=== PATIENT | female | born 1945 | race Caucasian/White ===

== ENCOUNTER 2020-08-18 02:00 | Inpatient (IN) | payer SELFPAY ==
[~2020-08-18] VITALS: Ht 165.1 cm; Wt 66.2 kg
[2020-08-18] MEDS ORDERED: MORPHINE SULFATE INJ 2 MG/ML DISP.SYRIN ONE (02:17)
[2020-08-18] MEDS ORDERED: ONDANSETRON HCL/PF 4 MG/2 ML VIAL ONE (02:17)
[2020-08-18] MEDS ORDERED: ONDANSETRON HCL/PF 4 MG/2 ML VIAL IVP ONE (02:30)
[2020-08-18] MEDS ORDERED: MORPHINE SULFATE INJ 2 MG/ML DISP.SYRIN IV ONE (02:30)
--- NOTE | 2020-08-18 02:30 | NUR ---
PT BIBS BYSTANDER, PT FOUND IN THE MIDDLE OF THE ROAD CONFUSED AND IN PAIN. PT DOES NOT REMEMBER HOW SHE GOT THERE OR WHAT HAPPENED. PT STATES SHE LIVES ALONE AND IS ABLE TO PROVIDE HOME ADDRESS. PT COMPLAINING OF L LEG PAIN DOES NOT RECALL INJURY. TO ER BED 12
--- NOTE | 2020-08-18 02:42 | NUR ---
BLOOD COLLECTED AND SENT TO LAB
--- NOTE | 2020-08-18 02:46 | NUR ---
PT TAKEN TO CT
[2020-08-18 02:55] LABS: CALCIUM, SERUM 10.7 mg/dL (8.5-10.1); CARBON DIOXIDE 30 mmol/L (21-32); CHLORIDE 104 mmol/L (98-107); CREATININE 0.8 mg/dL (0.6-1.3); GLUCOSE 153 mg/dL (74-106); POTASSIUM 3.8 mmol/L (3.5-5.1); SODIUM SERUM 142 mmol/L (136-145); UREA NITROGEN, BLOOD 18 mg/dL (7-18)
[2020-08-18 03:00] LABS: ACETAMINOPHEN < 10 ug/ml (10-30); ALANINE AMINOTRANSFERASE 15 U/L (12-78); ALBUMIN 4.2 g/dL (3.4-5.0); ALCOHOL, BLOOD < 3 mg/dL (0-0); ALKALINE PHOSPHATASE 94 U/L (46-116); ASPARTATE AMINOTRANSFERASE 15 U/L (15-37); BILIRUBIN,DIRECT 0.1 mg/dL (0.0-0.2); BILIRUBIN,TOTAL 0.3 mg/dL (0.2-1.0)
--- NOTE | 2020-08-18 03:24 | NUR ---
urine collected and sent to lab
[2020-08-18 03:34] LABS: BASOPHILS % (AUTO) 0.1 % (0.0-2.0); HEMATOCRIT 41 % (33-45); LYMPHOCYTES # (AUTO) 0.7 /CMM (0.8-4.8); LYMPHOCYTES % (AUTO) 5.8 % (20.0-44.0); MEAN CORPUSCULAR HGB CONC 32 g/dl (31.0-36.0); MEAN CORPUSCULAR VOLUME 89 fL (82-100); MONOCYTES # (AUTO) 0.6 /CMM (0.1-1.30); MONOCYTES % (AUTO) 5.2 % (2.0-12.0); NEUTROPHILS # (AUTO) 10.5 /CMM (1.8-8.9); NEUTROPHILS % (AUTO) 88.9 % (43.0-81.0); PLATELET COUNT (AUTO) 254 /CMM (150-450); RED BLOOD CELL COUNT(AUTO) 4.61 MIL/uL (4.0-5.2); WHITE BLOOD COUNT (AUTO) 11.8 K/uL (4.3-11.0)
--- NOTE | 2020-08-18 03:42 | NUR ---
COVID SWAB COLLECTED AND SENT TO LAB
[2020-08-18 03:46] LABS: BILIRUBIN,URINE Negative (NEGATIVE); BLOOD, URINE Small Ery/uL (NEGATIVE); COLOR,URINE YELLOW (YELLOW); LEUKOCYTE ESTERASE ,URINE Negative (NEGATIVE); NITRITE, URINE Negative (NEGATIVE); PH,URINE 6.5 (5.0-8.0); PROTEIN,URINE Negative (NEGATIVE); UGLUCOSE Negative (NEGATIVE)
[2020-08-18] MEDS ORDERED: ASPIRIN 325 MG TABLET PO ONE (04:00)
--- NOTE | 2020-08-18 04:10 | NUR ---
Call from lab, rapid covid negative.
[2020-08-18] MEDS ORDERED: MORPHINE SULFATE INJ 2 MG/ML DISP.SYRIN IV PRN (04:30)
[2020-08-18] MEDS ORDERED: MAG HYDROX/AL HYDROX/SIMETH 30 ML UDC PO PRN (04:30)
[2020-08-18] MEDS ORDERED: NITROGLYCERIN 0.4 MG/TAB BOTTLE SL PRN (04:30)
[2020-08-18] MEDS ORDERED: ONDANSETRON HCL/PF 4 MG/2 ML VIAL IVP PRN (04:30)
[2020-08-18] MEDS ORDERED: ACETAMINOPHEN 325 MG TABLET PO PRN (04:30)
[2020-08-18] MEDS ORDERED: DOCUSATE SODIUM 100 MG CAPSULE PO PRN (04:30)
[2020-08-18 04:33] LABS: BACTERIA,URINE Many /HPF (None Seen); HYALINE CASTS, URINE Few /LPF (None Seen); MUCUS,URINE Few /LPF (None Seen); SQUAMOUS EPITHELIAL CELL,UR Many /HPF (None Seen); URINE AMORPHOUS URATE Many /HPF (None Seen)
[2020-08-18] MEDS ORDERED: ASPIRIN 325 MG TABLET ONE (04:47)
[2020-08-18] MEDS ORDERED: CEFTRIAXONE 1GM BAG (ER ONLY) 50 ML IV ONE (05:03)
[2020-08-18] MEDS: CEFTRIAXONE 1 G in IV D5W 50 ML IV SCH (05:09)
--- NOTE | 2020-08-18 06:05 | NUR ---
pt remains in bed resting comfortably
[2020-08-18] MEDS ORDERED: IV NS 0.9% 1,000 ML IV PRN (07:30)
[2020-08-18] MEDS: ENOXAPARIN SODIUM 60 MG/0.6 ML DISP.SYRIN SQ SCH ×2 (07:45→20:47)
[2020-08-18] MEDS: ASPIRIN 81 MG TAB.CHEW PO SCH (08:45)
[2020-08-18] MEDS: CARVEDILOL 3.125 MG TABLET PO SCH ×2 (08:46→20:47)
[2020-08-18 08:57] LABS: MAGNESIUM 2.2 mg/dL (1.8-2.4)
[2020-08-18] MEDS ORDERED: ENOXAPARIN SODIUM 60 MG/0.6 ML DISP.SYRIN SQ SCH (09:00)
[2020-08-18 09:13] LABS: THYROID STIMULATING HORMONE 0.624 uIU/mL (0.358-3.74)
--- NOTE | 2020-08-18 10:22 | NUR ---
This SW contacted [employer] Missing Persons [phone] and spoke with Detective Guillory. SW provided information regarding this patient and Angel Guillory informed this SW that the patient is on the missing persons list as of 08/17/2020. Detective Guillory provided this SW with responsible republican information Collette Romano . Plan: SW will contact Collette Romano to provide update on patient.
--- NOTE | 2020-08-18 10:24 | NUR ---
RAN spoke with Collette Romano and provided update regarding this patient. Collette Romano asked this SW to provide information for [facility] and RAN provided this information to Collette. Plan: RAN will follow-up with patient regarding contact with responsible libertarian. RAN remains available for all needs regarding this patient.
--- NOTE | 2020-08-18 10:35 | NUR ---
REPORT GIVEN TO VINH MERAZ FOR [facility]ANCI. Addendum: 08/18/20 at 1035 by JASON CORRECTION: ENDORSED CRITICAL TROPONIN TO VINH MERAZ.
--- NOTE | 2020-08-18 10:54 | NUR ---
PATIENT TRANSFERRED TO ROOM 309-1 VIA ACLS PROTOCOL. NO DSITRESS NOTED.
[2020-08-18 11:00] VITALS: BP 112/64
--- NOTE | 2020-08-18 11:41 | NUR ---
RAN spoke with Collette Rajan) Juan Antonio (daughter) to obtain collateral information regarding this patient. Ivy informed this SW that the patient has been diagnosed with Alzheimers approximately 5 years ago after a similar incident. Ivy informed this SW that the patient was placed under a 5150 hold 5 years ago for "danger to self" however hold was broken and was never hospitalized in a psychiatric facility. Ivy reported that the patient prior to - pandemic would attend an Adult Day Care however due to the pandemic patient has been at home. Ivy informed this SW that the patient has had change in behaviors over the last few months including mood swings. Ivy reports that the patient is independent in ADL's and IADL's and does not require any DME at home. Ivy is the main caregiver with patient's son-in-law and 2 grandchildren. RAN and Ivy discussed the need for senior adult community resources and Ivy was receptive to these resources. Ivy would like additional information regarding In-Home Support Services to have additional help with the patient. Plan: RAN will provide copy of senior adult community resources in patient's chart for daughter Ivy. RAN remains available for all needs regarding this patient.
--- NOTE | 2020-08-18 12:13 | NUR ---
BUILDING CONSTRUCTION PROFESSOR ADMITTING NOTES PT ADMITTED TO UNIT AT 1100 VIA GURNEY ACCOMPANIED BY Unruly GORDON. PT IS A/O X2-3. VERBALLY RESPONSIVE AND FORGETFUL, DENIES PAIN OR ANY DISCOMFORTS AT THIS TIME. ON ROOM AIR, TOLERATING WELL WITH NO SOB NOTED. PT ORIENTED TO ROOM ANDS STAFF. V/S TAKEN AND RECORDED. SKIN IS INTACT. PT PLACED ON TELE-MONITORING WITH CURRENT READING OF NSR WITH HR ON TH 60'S, NO C/O CHEST PAIN OR ANY CARDIAC DISTRESS VOICED AT THIS TIME. PT NOTED WITH IV ACCESS ON LAC G #20, IVF OF NS @ 100ML/HR STARTED AND INFUSING WELL. SAFETY MEASURES INITIATED: BED PLACED IN LOWEST LOCKED POSITION WITH SR UP X2, BED ALARM ON AND CALL LIGHT WITHIN EASY REACH OF PT. WILL CONTINUE TO MONITOR PT ACCORDINGLY.
--- NOTE | 2020-08-18 15:23 | NUR ---
RN NOTES PATIENT FOR MRI OF BRAIN WITHOUT CONTRAST. MRI PATIENT QUESTIONAIRE CHECKLIST OBTAINED FROM HECTOR (AMARA) [phone].
[2020-08-18 16:00] VITALS: BP 142/82
--- NOTE | 2020-08-18 16:01 | NUR ---
Patient was found on the streets wandering and confused. Per daughter Collette, patient has hx of alzheimers dementia, normally ambulatory and independent with adl's. She lives with her daughter and family. Usually attends to an adult day care center but due to the pandemic crisis, patient is confined to home. No DME or homehealth reported. Family is involved and supportive. Plan to discharge home once stable. Addendum: 08/18/20 at 1601 by SHAYNE ARNDT RN Amended: Links added.
--- NOTE | 2020-08-18 18:04 | NUR ---
RN NOTES CALLED TRANSCRIPT EVALUATOR X2 REGARDING PT MRI OF BRAIN W/O CONTRAST. LEFT MESSAGE VIA VOICEMAIL THEN RECEIVED CALL FROM CAMI THAT HE WILL DO IT TOMORROW BECAUSE HE'S WORKING FOR THE MRI APPROVAL. WILL ENDORSED.
--- NOTE | 2020-08-18 18:46 | NUR ---
RN NOTES RECEIVED CALL FROM [email or web address] THAT PT'S HAD HIGH TROPONIN 0.[address] SAMSON MADE AWARE WITH NO NEW ORDER MADE AT THIS TIME. WILL CONTINUE TO MONITOR.
--- NOTE | 2020-08-18 19:00 | NUR ---
fingernail sculptor notes received patient in bed awake alert and oriented x 1-2 , able to follow directions, make simple needs known, respirations even and unlabored with equal rise and fall of chest, noted forgetful and confusion. on tele monitor currently not in place, patient removed tele box refusing box application. per report has been sr , no distress present remains stable. iv site to left ac #22 g intact and patent, no redness, no infiltration present, ivf running as ordered ,oriented to room staff and call light, safety precautions rendered low bed and locked, all needs attended at this time, will continue to monitor.remains comfortable at this time.
--- NOTE | 2020-08-18 19:00 | NUR ---
ROD WELDER CLOSING NOTES PATIENT IN BED AND AWAKE AT THIS TIME. A/O X2-3. ABLE TO MAKE NEEDS KNOWN. VERBALLY RESPONSIVE CONFUSED AND FORGETFUL ON AND OFF DURING THE DAY. FREQUENT REORIENTATION TO PATIENT DONE. ON ROOM AIR, TOLERATING WELL WITH NO SOB NOTED. TELE MONITORING SHOWS NSR WITH HR IN THE 60-70'S. NO COMPLAINT OF CHEST PAIN OR CARDIAC DISTRESS VOICED DURING SHIFT. PT KEEPS REMOVING TELE BOX, REMINDED NOT TO TAKE IT OFF. IV ACCESS ON LFA #22, IVF OF NS @ 100ML/HR INFUSING WELL, NO S/S OF INFILTRATIONS NOTED AT SITE. PATIENT IS CONTINENT. SAFETY MEASURES MAINTAINED: BED IN LOWEST LOCKED POSITION WITH SR UP X2, BED ALARM ON AND CALL LIGHT WITHIN EASY REACH OF PT. REEDUCATED PATIENT TO NOT GET UP FROM BED BY HERSELF, AND TO USE CALL LIGHT FOR ASSISTANCE. WILL ENDORSE TO NEXT SHIFT RN PLAN OF CARE.
--- NOTE | 2020-08-18 19:18 | NUR ---
RN NOTES PT IS CONFUSED AND PULLED OUT HER IV ACCESS ON LAC G#20, NO ACTIVE BLEEDING AT SITE NOTED. NEW PIV INSERTED TO LFA G#22, TAPED AND DATED THEN RESUMED IVF ORDERED.
[2020-08-18 20:00] VITALS: BP 136/78
[2020-08-19] VITALS: BP 97/60
[2020-08-19] MEDS: CEFTRIAXONE 1 G in IV D5W 50 ML IV SCH (04:21)
[2020-08-19 04:30] VITALS: BP 103/60
--- NOTE | 2020-08-19 06:24 | NUR ---
calcine furnace tender notes patient in bed awake alert and oriented x 1-2 , ambulatory steady gait stand by assist respirations even and unlabored with equal rise and fall of chest, noted very forgetful with confusion. needs constant reeducation and reminders , removed iv line during shift reinserted new site constantly removed tele monitor throughout the shift despite education. at this time remains sr 70, no distress present remains stable. iv site to left ac #22 g intact and patent, no redness, no infiltration present, ivf was infused while patient slept for about 4 hours , pt kept removing iv tubing, ,oriented to room staff and call light, safety precautions rendered low bed and locked, all needs attended at this time, will continue to monitor.remains comfortable at this time will endorse to next shift. all needs met. fluids and snack given.
[2020-08-19 06:43] LABS: BASOPHILS % (AUTO) 0.7 % (0.0-2.0); HEMATOCRIT 38 % (33-45); LYMPHOCYTES # (AUTO) 2.3 /CMM (0.8-4.8); LYMPHOCYTES % (AUTO) 37.5 % (20.0-44.0); MEAN CORPUSCULAR HGB CONC 32 g/dl (31.0-36.0); MEAN CORPUSCULAR VOLUME 89 fL (82-100); MONOCYTES # (AUTO) 0.4 /CMM (0.1-1.30); MONOCYTES % (AUTO) 6.9 % (2.0-12.0); NEUTROPHILS # (AUTO) 3.4 /CMM (1.8-8.9); NEUTROPHILS % (AUTO) 54.9 % (43.0-81.0); PLATELET COUNT (AUTO) 256 /CMM (150-450); RED BLOOD CELL COUNT(AUTO) 4.24 MIL/uL (4.0-5.2); WHITE BLOOD COUNT (AUTO) 6.1 K/uL (4.3-11.0)
[2020-08-19 07:06] LABS: ALBUMIN 3.5 g/dL (3.4-5.0); BILIRUBIN,TOTAL 0.4 mg/dL (0.2-1.0); CALCIUM, SERUM 9.9 mg/dL (8.5-10.1); CREATININE 0.6 mg/dL (0.6-1.3); MAGNESIUM 2.3 mg/dL (1.8-2.4); PHOSPHORUS 3.4 mg/dL (2.5-4.9); POTASSIUM 3.7 mmol/L (3.5-5.1); TOTAL PROTEIN, SERUM 7.1 g/dL (6.4-8.2)
[2020-08-19 07:21] LABS: THYROID STIMULATING HORMONE 2.53 uIU/mL (0.358-3.74)
--- NOTE | 2020-08-19 07:41 | NUR ---
MARKETING CLERK OPENING NOTES Endorsed patient in bed sleeping, able to be awakened, alert and oriented x 1-2. breathing even and unlabored, tolerating room air. On tele monitoring, at this time remains sr 70, no distress present remains stable. IV line to left ac #22 intact and patent. patient is verbally responsive and able to make needs known. safety precautions in place: bed locked and on lowest position, sr up x2, call light w/in reach. will continue to monitor.
[2020-08-19 08:00] VITALS: BP 121/86
[2020-08-19] MEDS: ASPIRIN 81 MG TAB.CHEW PO SCH (08:33)
[2020-08-19] MEDS: CARVEDILOL 3.125 MG TABLET PO SCH ×2 (08:35→21:37)
[2020-08-19] MEDS: ENOXAPARIN SODIUM 60 MG/0.6 ML DISP.SYRIN SQ SCH ×2 (08:37→21:38)
--- NOTE | 2020-08-19 08:40 | NUR ---
RN NOTES PATIENT PICKED UP TODAY BY DRUG SAFETY ASSISTANT FOR BRAIN MRI PROCEDURE VIA WHEELCHAIR.
--- NOTE | 2020-08-19 11:19 | NUR ---
RN NOTES PATIENT RETURNED FROM MRI PROCEDURE VIA WHEELCHAIR ACCOMPANIED BY MUSEUM GUIDE.
[2020-08-19] MEDS ORDERED: IV NS 0.9% 0 ML IV ONE (12:02)
[2020-08-19] MEDS ORDERED: IOHEXOL-350 100 ML VIAL IV ONE ×2 (12:02→16:15)
--- NOTE | 2020-08-19 13:13 | NUR ---
ICU/RN: PT REFUSED CTA, EXPLAINED THE IMPORTANCE OF THE EXAM, PT CONTINUES TO REFUSE. PIV INFILTRATED, ATTEMPTED TO INSERT NEW LINE, UNABLE. NURSING LAND ECONOMIST INFORMED, PT NEEDS A MIDLINE INSERTED PRIOR TO ATTEMPTING THE EXAM AGAIN.
[2020-08-19] MEDS ORDERED: ASPI-1169 PO (14:06)
[2020-08-19] MEDS ORDERED: CARV3.122 PO (14:06)
[2020-08-19] MEDS ORDERED: IV NS 0.9% 250 ML IV ONE (16:15)
[2020-08-19] MEDS: METOPROLOL TARTRATE INJ 5 MG/5 ML AMPUL IVP PRN ×2 (16:30→16:35)
[2020-08-19] MEDS ORDERED: NITROGLYCERIN 4.9 GM SPRAY SL PRN (16:30)
[2020-08-19] MEDS ORDERED: METOPROLOL TARTRATE INJ 5 MG/5 ML AMPUL ONE (16:31)
--- NOTE | 2020-08-19 16:37 | NUR ---
RN NOTES MIDLINE INSERTED ON LAC BY MIDLINE NURSE. PATIENT TAKEN TODAY FOR CT ANGIO PROCEDURE, ACCOMPANIED BY TUBE DRAW HELPER.
--- NOTE | 2020-08-19 19:25 | NUR ---
DIAGNOSTIC TECH CLOSING NOTES Patient in bed awake and verbally responsive, alert and oriented x 1-2, episode of forgetfulness/confusion but redirectable. breathing even and unlabored, tolerating room air. On tele monitoring, at this time remains sr 70, no distress present remains stable. Left ac midline intact and patent. s/p CTCA, currently awaiting result, w/ standing order for d/c upon negative CTCA result, dtr of patient aware. safety precautions maintained: bed locked and on lowest position, sr up x2, call light w/in reach. endorsed to flatbed company driver rn for [employer]ito.
--- NOTE | 2020-08-19 19:30 | NUR ---
SYSTEM OPERATOR OPENING NOTE RECEIVED PATIENT IN BED. A/OX1-2, PERIODS OF CONFUSION, EASILY REDIRECTABLE. TOLERATING ROOM AIR. RESPIRATIONS ARE EVEN AND UNLABORED. NO S/S SOB NOTED. NO C/O PAIN NO S/S PAIN NOTED. REFUSES TO WEAR EXTERNAL TELE MONITOR. IN NO APPARENT DISTRESS. IV ACCESS IN AUDRA MIDLINE PATENT AND SALINE LOCKED, AND RAC#22 PATENT AND SALINE LOCKED. WAS ENDORSE THERE IS A DISCHARGE ORDER PENDING ON CTCA RESULTS ARE NEGATIVE. BED IS LOW AND LOCKED, HOB ELEVATED IN SEMI RAMSEY,S SIDE RAILS UP X2, CALL LIGHT WITHIN REACH. WILL CONTINUE TO MONITOR.
[2020-08-19 20:00] VITALS: BP 134/88
[2020-08-19] MEDS ORDERED: PNEUMOCOCCAL 23-VAL P-SAC VAC 0.5 ML VIAL SQ ONE (20:00)
--- NOTE | 2020-08-19 20:02 | NUR ---
RN NOTES TRIED TO ACCESS PHARMACY REFRIGERATOR FOR PNEUMOCOCCAL VACCINE BUT REFRIGERATOR WON'T OPEN.
--- NOTE | 2020-08-19 21:13 | NUR ---
PROOF CARRIER NOTE THER IS A DISCHARGE ORDER FROM DR. MALI JOEL THAT IS PATIENT CTCA IS NEGATIVE THEN OK TO DISCAHRGE. INFORMED DR. SAMSON OF RESULTS STATED OK TO CONTINUE WITH DISCHARGE. ALSO INFORMED WAREHOUSE STOCK CLERK SAMAN LOUIS NP OF THE DISCHARGE AND RESULTS. WILL CALL FAMILY AND DISCHARGE HOME. WILL CONTINUE TO MONITOR.
[2020-08-19 21:37] VITALS: BP 161/96
--- NOTE | 2020-08-19 21:50 | NUR ---
FINANCIAL AID COORDINATOR NOTE UNABLE TO ADMINISTER PNUEMOCOCCAL VACCINE TO PATIENT D/T PHARMACY DID NOT DELIVER IN TIME. NOT STOCKED IN EITHER ONMI CELL ON UNIT.. CHARGE TRIED TO OVER RIDE BUT NOT STOCKED. NURSING SUP STATED NOT STOCKED IN NIGHT LOCKER, AND NONE AVAILABLE IN ER. VACCINATION NOT GIVEN D/T UNAVAILABILITY.
--- NOTE | 2020-08-19 22:27 | NUR ---
BUILDING INSPECTORSHEARER OPERATOR NOTE PATIENT IS BEING DISCHARGED HOME TO FAMILY. PATIENT WHEELED DOWN TO LOBBY BY RESIDENTIAL CONSTRUCTION INSTRUCTOR. DAUGHTER PEDRO CAME TO CASING PULLER PATIENT. PATIENT REMAINS A/OX1-2. REMAINS TOLERATING ROOM AIR. NO C/O PAIN. IN NO APPARENT DISTRESS. IV ACCESS WERE REMOVED. NO PHOTOS TAKEN SKIN IS INTACT. EXIT CARE AND BELONGING LIST GIVEN TO DAUGHTER AND EXPLAINED. PRESCRIPTION GIVEN TO DAUGHTER. EXPLAINED TO DAUGHTER WAS NOT ABLE TO GIVE PNEUMOCOCCAL VACCINE D/T NOT AVAILABLE IN HOSPITAL AT THIS TIME. PATIENT LEFT IN STABLE CONDITION.
== END 2020-08-19 22:25 | disposition home or self-care (01) | DRG 70 ==
LOC: ER 02:00 → TRANSITION 04:54 → OBSVTOIN 04:54 → TELE 09:57
PROVIDERS: ADMIT Registered Nurse
PROC: 05HF33Z Insertion of Infusion Device into Left Cephalic Vein, Percutaneous Approach (ICD-10-PCS; principal; 2020-08-19)
DX: G45.4 Transient global amnesia (principal); I21.A1 Myocardial infarction type 2; I67.89 Other cerebrovascular disease; M79.662 Pain in left lower leg; M79.661 Pain in right lower leg; J43.2 Centrilobular emphysema; E83.52 Hypercalcemia; I87.8 Other specified disorders of veins; M47.9 Spondylosis, unspecified; Z20.828 Contact with and (suspected) exposure to other viral communicable diseases; Z79.82 Long term (current) use of aspirin; R53.1 Weakness
CPT/HCPCS: 36415; 70450-TC; 70551-TC; 71045-TC; 72192-TC; 75574; 80048-TC; 80053-TC; 80061-TC; 80076-TC; 81001; 82962-TC; 83735-TC; 83970; 84100-TC; 84439-TC; 84443-TC; 84484-TC; 85025-TC; 85730-TC; 87081-TC; 87086-TC; 90732; 93307-TC; 93970-TC; C9803; G0378; G0480; J0696; J1650; J2270; J2405; J3490; J7030; J7050; J7060; Q9967